=== PATIENT | male | born 1960 | race Hispanic/Latino ===

== ENCOUNTER 2017-06-30 15:05 | Outpatient (CLI) | payer BC | END 2017-06-30 15:06 | disposition home or self-care (01) | LOC: BICRAD 15:05 | PROVIDERS: ATTEND Internal Medicine Rheumatology | DX: M17.0 Bilateral primary osteoarthritis of knee (principal) ==

== ENCOUNTER 2017-12-15 14:04 | Outpatient (CLI) | payer BC ==
--- NOTE | 2017-12-15 17:00 | RAD ---
CHEST 2 VIEWS: Date: 12/15/17 HISTORY: Interstitial lung disease. COMPARISON: Chest radiograph from 2011. FINDINGS: Mild increase in the interstitial markings in the periphery of the lower lobes. There is a density pr ojecting over the right upper lung. IMPRESSION: 1. Findings suggesting mild peripheral chronic interstitial lung disease. 2. Subtle density projecting over the right mid lung near the minor fissure. Nonemergent CT of the c hest may be beneficial. POS: [facility]
== END 2017-12-15 14:05 | disposition home or self-care (01) ==
LOC: RAD-FRANK 14:04
PROVIDERS: ATTEND Nurse Practitioner Family
DX: J84.9 Interstitial pulmonary disease, unspecified (principal); R93.89 Abnormal findings on diagnostic imaging of other specified body structures; J98.4 Other disorders of lung
CPT/HCPCS: 71046; 87070

== ENCOUNTER 2019-02-07 12:49 | Outpatient (CLI) | payer BC ==
[~2019-02-07 12:49] MED LIST: Iopamidol-370 76% 500 ML 1 ML ONE
--- NOTE | 2019-02-07 13:36 | CT ---
CT OF THE CHEST WITH IV CONTRAST INDICATION: Follow-up pulmonary nodule COMPARISON: Prior chest radiograph dated 12/15/2017 FINDINGS: CHEST: Lungs: Scattered areas of peripheral interstitial fibrotic change in the predominantly in upper lobe distribution is present. There are scattered areas of mild bronchiectasis involving both upper lobes. There are scattered areas of centrilobular and paraseptal emphysema. No suspicious pulmonary n odule is demonstrated. No confluent airspace opacity is present. Pleural space: No effusion. Mediastinum: There are coronary artery and thoracic aortic calcifications. No pathologically enlarged lymph nodes are evident. Upper abdomen:There is a laparoscopic gastric band in place. No acute abnormality is noted. Osseous structures: No acute osseous abnormality. No destructive osteolytic or osteoblastic lesion i s identified. There is scattered degenerative and osteoarthritic changes. Soft tissues:Normal. IMPRESSION: 1. No suspicious pulmonary nodule. 2. Peripheral interstitial fibrosis seen predominantly in upper lobe distribution with mild associate d bronchiectasis and mild emphysema. This is nonspecific but can be seen in entities such as prior smoking, chronic hypersensitivity pneumonitis and certain drug induced lung disease.
== END 2019-02-07 12:50 | disposition home or self-care (01) ==
LOC: BICCT 12:49
PROVIDERS: ATTEND Internal Medicine Critical Care Medicine
DX: R91.1 Solitary pulmonary nodule (principal); J84.10 Pulmonary fibrosis, unspecified; J47.9 Bronchiectasis, uncomplicated; J43.9 Emphysema, unspecified
CPT/HCPCS: 71260; 82565; Q9967

== ENCOUNTER 2020-06-26 14:30 | Outpatient (CLI) | payer BC | END 2020-06-26 14:31 | disposition home or self-care (01) | LOC: BICRAD 14:30 | PROVIDERS: ATTEND Internal Medicine Critical Care Medicine | DX: R06.09 Other forms of dyspnea (principal) | CPT/HCPCS: 71046 ==

== ENCOUNTER 2021-02-05 19:09 | Emergency (ER) | payer BC | END 2021-02-05 20:25 | disposition left against medical advice (07) | LOC: ERS 19:09 | DX: Z53.21 Procedure and treatment not carried out due to patient leaving prior to being seen by health care provider (principal) ==

== ENCOUNTER 2022-06-17 13:44 | Outpatient (CLI) | payer BC | END 2022-06-17 13:45 | disposition home or self-care (01) | LOC: RAD 13:44 | PROVIDERS: ATTEND Internal Medicine Critical Care Medicine | DX: R06.00 Dyspnea, unspecified (principal) | CPT/HCPCS: 71046 ==